=== PATIENT | male | born 1955 | race Caucasian/White ===

== ENCOUNTER 2023-08-06 11:26 | Outpatient (CLI) | payer MEDICARE, SELFPAY | END 2023-08-06 11:27 | disposition home or self-care (01) | LOC: ANHSURGERY 11:33 | PROVIDERS: PCP Family Medicine Adolescent Medicine; Visit Provider Surgery | DX: K40.90 Unilateral inguinal hernia, without obstruction or gangrene, not specified as recurrent (principal); Z01.818 Encounter for other preprocedural examination | CPT/HCPCS: 36415; 86850; 86900; 86901 ==

== ENCOUNTER 2023-08-09 00:11 | Day surgery (SDC) | payer MEDICARE, SELFPAY ==
--- NOTE | 2023-08-05 11:11 | PC.NURSE ---
Report to the Outpatient Waiting Room, entrance under the green pavilion located off [facility], at time 0600 on date __08/09/23 . Planned Procedure Time: _0730 . Time changes happen often and if your time is changed the preop area will call you the afternoon before. - You and your visitor will be asked to self-screen and do not enter if you have any COVID symptoms. - A mask is optional within the hospital at this time. Patients may have clear liquids (water, carbonated beverages, clear teas, apple juice) until 3 hours prior to surgery with a maximum of 20 ounces. - No food from midnight until time of surgery - Infants may have breast milk until 4 hours before surgery, infant formula 6 hours prior to surgery. - Children will be allowed to drink immediately following surgery. If applicable, please bring a bottle or sippy cup to assist with drinking. Juice, water, soda, and popsicles are readily available. For infants on formula, please bring formula the day of surgery. Pacifiers are allowed. Take the following medications with a SIP of water the morning of surgery: __INHALERS DO NOT STOP ANY OF YOUR OTHER PRESCRIPTION MEDICATIONS PRIOR TO SURGERY ?EXCEPT THE FOLLOWING Medications to discontinue per physician __ALL VITAMINS AND SUPPLEMENT 3 DAYS PRE OP.LAST DOSE 08/05/23 HIBICLENS SHOWER MORNING OF SURGERY Please no make-up, nail argentine, hairspray, perfume, deodorant, or body powder the day of surgery. No jewelry (including any body piercings) or valuables the day of surgery, leave them at home. Please take a shower or bath the night before, or the morning of, surgery with an antibacterial soap. Wear comfortable, loose fitting clothing. Children are encouraged to wear pajamas. - Jewelry must be removed prior to entering the operating room. Rings and piercings that are not removed may be cut off. - The hospital will not accept responsibility for valuables. - Please leave all valuables, including medications, at home the day of surgery. If you are going home after surgery, a licensed light truck driver must drive you home. - NO public transportation without another adult if you receive anesthesia. - We recommend that an adult stay with you for 24 hours following discharge. - We also recommend that you do not drive, make important decision, drink alcoholic beverages, or take any drugs that were not prescribed by your health care provider for at least 24 hours after your discharge time. For Pediatric surgeries, we recommend two adults accompany the child home. Follow any additional instructions given to you from your surgeon. If you or anyone in your household have experienced Covid symptoms in the past week, please notify your surgeon or the nurse liaison at the phone number below for possible testing. Telephone instructions given to __PT'S RACHEAL and asked if any additional questions and then verbalized understanding. Patient advised to call surgeon office or pre surgery nurse liaison [phone] if any additional questions.
[2023-08-05 11:20] VITALS: BMI 21.4
--- NOTE | 2023-08-08 21:11 | PM.SD2 ---
Same Day Admit/Disch: HPI History of Present Illness Chief complaint: right inguinal hernia Narrative: Oleg Gomez is a 68 year old male with a right groin bulge for 3 years. It is getting larger and is occasionally painful. He was seen in the office and is taken to surgery now for robotic laparoscopic repair. [facility] Past Medical History Medical History (Updated 08/09/23 @ 09:14 by Todd Sumner MD) Asthma Family History Family History Father Anemia Social History Social History Smoking status: Never smoker Alcohol intake: current Drinks per week: 2 Lack of Transportation: No Lack of Food: Never True Current Housing: I Have Housing Concerned About Future Housing: No Difficulty Paying Gas/Electric Bills: No Difficulty Paying for Meds: No Currently Unemployed: No Education: Trade/Vocational Certificate Difficulty w/ Childcare or Family Care: No Living arrangements: with family Spiritual care concerns: No Same Day Admit/Disch: Med Pre-admit Medications Home Medications Medication Instructions Recorded Confirmed Type ascorbic acid (vitamin C) 500 mg 500 mg PO DAILY 08/05/23 08/05/23 History tablet budesonide-formoterol HFA 160 2 inh inhalation BID 08/05/23 08/05/23 History mcg-4.5 mcg/actuation aerosol inhaler fluticasone propionate 50 2 spray intranasal DAILY 08/05/23 08/05/23 History mcg/actuation nasal spray,suspension glucosamine sulf dipot 1 cap PO DAILY 08/05/23 08/05/23 History chlr,msm,chond 550 mg-C 30 mg-lissy 1 mg capsule (Glucosamine Chondroitin) multivitamin 1 tablet PO DAILY 08/05/23 08/05/23 History ibuprofen 600 mg tablet 600 mg PO Q6H PRN pain #14 tabs 08/09/23 Rx oxycodone-acetaminophen 5 mg-325 0.5 - 1 tablet PO Q8H PRN pain #10 08/09/23 Rx mg tablet tabs Review of Systems Review of Systems All systems reviewed & are unremarkable except as noted in HPI and below (HPI) Exam Const: General: comfortable, no acute distress, alert and awake HENMT: Head: normocephalic and atraumatic Mouth: Yes Normal oral and palatal mucosa present Eyes: Conjunctivae: conjunctivae normal Pupils: Equal, round and reactive pupils present EOM: EOMs intact bilaterally Neck: Neck: normal visual inspection, no lymphadenopathy and nontender Resp: Effort & Inspection: normal respiratory effort Auscultation: clear to auscultation bilaterally Cardio: Rate: regular rate Rhythm: regular rhythm Heart sounds: no gallops, no murmurs and no rubs GI: Inspection: non-distended GI Palp: Yes Soft to palpation, No Tenderness to palpation present (GI), No Hepatomegaly present and No Splenomegaly present : Male General Exam: Yes hernia (right inguinal, obvious bulge, reduces) and No tenderness Penis: Yes normal penis Scrotum: scrotum normal Testes: Testes normal Skin: Lesions: no lesions Rashes: no rashes Neuro: General: no focal motor deficits and CN's II-XI intact bilaterally Cranial nerves: Yes Equal, round and reactive pupils present, Yes Bilaterally intact EOM present, Yes facial symmetry and Yes Midline tongue present Speech: normal speech Motor exam (neuro): 5/5 motor strength present throughout and Motor abnormalities not present Extrem: General: no clubbing, cyanosis or edema and edema Psych: Affect: normal affect Thought process: Normal thought process present Insight: Good insight present (Psych) DS: Summary Time Spent with Patient Time attestation: Total time spent providing and/or coordinating discharge services: DS: Admitting Diagnosis Discharge Date 08/09/23 Admitting Diagnosis reducible right inguinal hernia--plan to proceed with robotic laparoscopic repair. Procedure, risks, benefits discussed. All questions answered. He agrees to go ahead. DS: Discharge Diagnosis Discharge Diagnosis (1) Right inguinal hernia:
[2023-08-09] VITALS (8 sets, daily range): BP systolic 104–137; BP diastolic 69–90; PULSE 55–71; RESP 12–16; TEMP 36.6–36.9; O2SAT 96–100
[2023-08-09] MEDS: LACTATED RINGERS 1,000 ML 30 ML IV CONT ×3 (06:30→10:32)
[2023-08-09] MEDS: ACETAMINOPHEN 500 MG TABLET 1000 MG PO (06:40)
[2023-08-09] MEDS: KETOROLAC 15 MG/ML VIAL (*BKC) IV PUSH (06:41)
--- NOTE | 2023-08-09 06:57 | WPDHPUPDATE1 ---
History and Physical Update Update Date/Time: 08/09/23 06:57 History and Physical has been reviewed, including an updated exam of the patient. There are NO changes in the patient's condition. Risks, benefits, and alternatives have been discussed and questions answered. Patient agrees to proceed with procedure.
--- NOTE | 2023-08-09 07:06 | WPDANESEPPF ---
Anes - Initial Pre Proc Eval Procedure: Operation Date: 08/09/23 07:30 Proposed Procedures p Robotic Assisted Right Inguinal Hernia Repair - Todd Sumner MD Date/Time: 08/09/23 07:06 Surgeon: Todd Sumner MD Pre Op Diagnosis: right inguinal hernia Patient Data Age: 68 Gender: M Height: 1.75 m Weight: 65.8 kg Allergies Allergy/AdvReac Type Severity Reaction Status Date / Time No Known Allergies Allergy Verified 08/05/23 11:05 Home Medications Medication Instructions Recorded Confirmed Type ascorbic acid (vitamin C) 500 mg 500 mg PO DAILY 08/05/23 08/05/23 History tablet budesonide-formoterol HFA 160 2 inh inhalation BID 08/05/23 08/05/23 History mcg-4.5 mcg/actuation aerosol inhaler fluticasone propionate 50 2 spray intranasal DAILY 08/05/23 08/05/23 History mcg/actuation nasal spray,suspension glucosamine sulf dipot 1 cap PO DAILY 08/05/23 08/05/23 History chlr,msm,chond 550 mg-C 30 mg-lissy 1 mg capsule (Glucosamine Chondroitin) multivitamin 1 tablet PO DAILY 08/05/23 08/05/23 History Patient hx anesthesia problems: none Family hx anesthesia problems: none Results Review: All pre-operative results and documents have been reviewed as part of the pre-operative evaluation. [facility] Past Medical History Medical History (Updated 08/09/23 @ 07:06 by Ivan Hernandez MD) Asthma Family History Family History Father Anemia Social History Social History Smoking status: Never smoker Alcohol intake: current Drinks per week: 2 Lack of Transportation: No Lack of Food: Never True Current Housing: I Have Housing Concerned About Future Housing: No Difficulty Paying Gas/Electric Bills: No Difficulty Paying for Meds: No Currently Unemployed: No Education: Trade/Vocational Certificate Difficulty w/ Childcare or Family Care: No Living arrangements: with family Spiritual care concerns: No Anes - Eval Final PreProcedure Day of Procedure 08/09/23 07:06 Patient weight: normal Heart: regular rate and rhythm Lungs: clear to auscultation Airway: Mallampati scale class II Neurological: alert and oriented Last oral intake: >/= 8 hours ASA classification: II Emergent: no Anesthetic plan: proceed Anesthesia type and monitoring: general ETT and standard monitoring Results Review: All pre-operative results and documents have been reviewed as part of the pre-operative evaluation. Informed Consent: The patient's anesthetic plan and its attendant risks and benefits were discussed with the patient/family/POA. Questions were solicited and answers provided to the satisfaction of the patient/family/POA.
[2023-08-09] MEDS: ceFAZolin 2 GM/D5W 50 ML 2 GM/50 ML BAG IVPB (07:28)
[2023-08-09] MEDS: BUPIVACAINE/EPINEPHRINE 0.5% 50 ML VIAL 30 ML INFILTRATE (08:15)
--- NOTE | 2023-08-09 09:01 | W.PM.PROC2 ---
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 It has become more pronounced and is occasionally painful. He was found to have a right inguinal hernia and is taken to surgery now for robotic laparoscopic repair Findings Patient had a large direct inguinal hernia. There was no indirect hernia. Description of Procedure Patient was taken to surgery and induced into general anesthesia. The abdomen was prepped and draped. The varies needle was placed 1st and insufflation carried out. Then a 5 mm applied Medical optical trocar was placed under direct visualization. We then placed the right-sided 8 mm robotic trocar and the left-sided 8 mm robotic trocar under direct visualization. The midline trocar was removed and exchanged for a 3rd 8 mm robotic trocar. The robot was then brought into the field and the camera was docked. The camera was targeted. We then docked the 1st and 3rd arms of the robot. Instruments were position there as well. The surgeon broke scrub and went to the robotic console. A peritoneal flap was created at about the level of the anterior superior iliac spine. It was started laterally and continued medially to the median umbilical ligament. The peritoneal flap was then created dissecting both lateral and medial to the cord structures 1st. On the medial dissection, we did proceed across the midline to expose the medial border of the left rectus muscle and also the midline of the pubis. Ronal's ligament was exposed and about 2 cm posterior to the pubis was dissected. There was bleeding in this area which was controlled with cautery. We suctioned out some of the residual clot. Further dissection was carried out to remove the peritoneal reflection from the cord structures. Fatty tissue was removed from the direct hernia leaving the transversalis fascia in place. I also removed some fatty tissue from the femoral space. I then turned to the lateral aspect of the peritoneal flap. Staying very close to the flap, I dissected it free from the abdominal wall at least 4 cm posterior to the internal ring. I then grasped the peritoneum in the area of the cord structures. Retracting medially and dissecting cord structures off the peritoneum I was able to free the peritoneum from the cord structures well past 4 cm from the internal ring. A 17 x 12 cm right-sided 3DMax mesh was then placed into the abdominal cavity. The Vicryl and V lock suture were also placed. The mesh was positioned appropriately. It covered well the direct hernia defect as well as the indirect space. Its posterior aspect fit nicely into the space below the pubis and Ronal's ligament. I then used 3-0 Vicryl to suture the mesh to Ronal's ligament. The mesh was then sutured to the anterior abdominal wall both medial and lateral to the inferior epigastric vessels. All looked good. I then used the 2 0 V lock and closed the peritoneal flap from lateral to medial. All looked good. The V lock and Vicryl suture needles were then removed. The robot was undocked after the camera and other instruments were removed. Trocars were removed and the skin wounds were closed with subcuticular running 4-0 Monocryl skin suture. The wounds were dressed with Exofin surgical adhesive. A scrotal support was placed. The patient was awakened and taken to recovery in good condition. Sponge needle counts were correct x2. Implants 17 x 12 cm right-sided mid 3DMax mesh Estimated Blood Loss -5 Drains No Packing No Pathology None sent Complications No immediate complications Condition Stable Disposition PACU [facility] - Charge Forward: Surger
== END 2023-08-09 11:48 | disposition home or self-care (01) ==
PROVIDERS: PCP Family Medicine Adolescent Medicine; Visit Provider Surgery
PROC: 8E0Y4CZ Robotic Assisted Procedure of Lower Extremity, Percutaneous Endoscopic Approach (ICD-10-PCS; CPT 49650; principal; 2023-08-09 07:30)
DX: K40.90 Unilateral inguinal hernia, without obstruction or gangrene, not specified as recurrent (principal); J45.909 Unspecified asthma, uncomplicated; Z79.51 Long term (current) use of inhaled steroids
CPT/HCPCS: 49650; S2900; 36415; 86850; 86900; 86901; A9270; C1781; J0690; J1100; J1885; J2250; J2704; J3010; J7030; J7120

== ENCOUNTER 2024-08-26 08:59 | Day surgery (SDC) | payer MEDICARE, SELFPAY ==
[2024-04-29 10:25] VITALS: BMI 21.5
[2024-08-11 11:00] VITALS: BMI 20.8
--- NOTE | 2024-08-25 15:35 | WPDANESEPPF ---
Anes - Initial Pre Proc Eval Procedure: Operation Date: 08/26/24 11:00 Proposed Procedures p Diagnostic Colonoscopy - Fawad Villafuerte MD Date/Time: 08/25/24 15:35 Surgeon: Fawad Villafuerte MD Pre Op Diagnosis: Personal history of colon polyps Patient Data Age: 69 Gender: M Height: 1.78 m Weight: 66 kg Allergies Allergy/AdvReac Type Severity Reaction Status Date / Time No Known Allergies Allergy Verified 08/26/24 09:36 Home Medications Medication Instructions Recorded Confirmed Type ascorbic acid (vitamin C) 500 mg 500 mg PO DAILY 08/05/23 08/26/24 History tablet fluticasone propionate 50 2 spray intranasal DAILY 08/05/23 08/26/24 History mcg/actuation nasal spray,suspension glucosamine sulf dipot 1 cap PO DAILY 08/05/23 08/26/24 History chlr,msm,chond 550 mg-C 30 mg-lissy 1 mg capsule (Glucosamine Chondroitin) multivitamin 1 tablet PO DAILY 08/05/23 08/26/24 History loratadine 10 mg tablet (Claritin) 10 mg PO DAILY PRN Allergy Symptoms 04/27/24 08/26/24 History budesonide 160 mcg-glycopyr 9 1 inh inhalation BID 08/11/24 08/26/24 History mcg-formot 4.8 mcg/actuation HFA inhaler (Breztri [employer]) Patient hx anesthesia problems: none Family hx anesthesia problems: none Results Review: All pre-operative results and documents have been reviewed as part of the pre-operative evaluation. [facility] Past Medical History Medical History (Updated 04/27/24 @ 06:43 by Mumtaz Wynne MD) Asthma Right inguinal hernia Surgical History Surgical History History of hernia repair Robotic laparoscopic right inguinal hernia repair with mesh on 08/09/23 Dr. Sumner Family History Family History Father Anemia Social History Social History Smoking status: Former smoker Tobacco type: cigarettes Alcohol intake: current Drinks per week: 3 Substance use type: does not use Lack of Transportation: No Lack of Food: Never True Current Housing: I Have Housing Concerned About Future Housing: No Difficulty Paying Gas/Electric Bills: No Difficulty Paying for Meds: No Currently Unemployed: No Education: Trade/Vocational Certificate Difficulty w/ Childcare or Family Care: No Living arrangements: with family Spiritual care concerns: No Anes - Eval Final PreProcedure Day of Procedure 08/25/24 15:35 Patient weight: normal Heart: regular rate and rhythm Lungs: clear to auscultation and normal air movement Airway: Mallampati scale class II Neurological: alert and oriented Last oral intake: >/= 8 hours ASA classification: II Emergent: no Anesthetic plan: proceed Anesthesia type and monitoring: general GIVS and standard monitoring Results Review: All pre-operative results and documents have been reviewed as part of the pre-operative evaluation. Informed Consent: The patient's anesthetic plan and its attendant risks and benefits were discussed with the patient/family/POA. Questions were solicited and answers provided to the satisfaction of the patient/family/POA.
[2024-08-26 09:41] VITALS: BP 146/89; PULSE 59; RESP 16; TEMP 36.8; O2SAT 98
[2024-08-26] MEDS: LACTATED RINGERS 1,000 ML 150 ML IV CONT (09:55)
--- NOTE | 2024-08-26 10:23 | PM.HPGS ---
History of Present Illness History of Present Illness Consent: Risks, benefits, and alternatives have been discussed and questions answered. Patient agrees to proceed with procedure. Chief complaint: Personal history of colon polyps Narrative: Oleg Gomez is a 69 year old male referred for colonoscopy. Patient has a history of colon polyps at the time of colonoscopy in 2019, 5 years ago. Patient is his current weight appetite and so are normal. He denies abdominal pain. Patient has had no bleeding. Family history noncontributory. Review of Systems Review of Systems: All systems reviewed & are unremarkable except as noted in HPI and below PMFSH Past Medical History Medical History (Updated 08/26/24 @ 10:25 by Fawad Villafuerte MD) Asthma Right inguinal hernia Surgical History Surgical History History of hernia repair Robotic laparoscopic right inguinal hernia repair with mesh on 08/09/23 Dr. Sumner Family History Family History Father Anemia Social History Social History Smoking status: Former smoker Tobacco type: cigarettes Alcohol intake: current Drinks per week: 3 Substance use type: does not use Lack of Transportation: No Lack of Food: Never True Current Housing: I Have Housing Concerned About Future Housing: No Difficulty Paying Gas/Electric Bills: No Difficulty Paying for Meds: No Currently Unemployed: No Education: Trade/Vocational Certificate Difficulty w/ Childcare or Family Care: No Living arrangements: with family Spiritual care concerns: No Meds Home Medications and Allergies Home Medications Medication Instructions Recorded Confirmed Type ascorbic acid (vitamin C) 500 mg 500 mg PO DAILY 08/05/23 08/26/24 History tablet fluticasone propionate 50 2 spray intranasal DAILY 08/05/23 08/26/24 History mcg/actuation nasal spray,suspension glucosamine sulf dipot 1 cap PO DAILY 08/05/23 08/26/24 History chlr,msm,chond 550 mg-C 30 mg-lissy 1 mg capsule (Glucosamine Chondroitin) multivitamin 1 tablet PO DAILY 08/05/23 08/26/24 History loratadine 10 mg tablet (Claritin) 10 mg PO DAILY PRN Allergy Symptoms 04/27/24 08/26/24 History budesonide 160 mcg-glycopyr 9 1 inh inhalation BID 08/11/24 08/26/24 History mcg-formot 4.8 mcg/actuation HFA inhaler (Breztri [employer]) Allergies Allergy/AdvReac Type Severity Reaction Status Date / Time No Known Allergies Allergy Verified 08/26/24 09:36 Vital Signs Vital Signs - 24 hr 08/26/24 09:41 Temperature 98.2 F Pulse Rate 59 L Respiratory Rate 16 Blood Pressure 146/89 H Pulse Oximetry 98 Oxygen Delivery Room Air Exam Narrative: Physical exam reveals patient to be alert. Vital signs stable. HEENT exam is unremarkable. Patient is anicteric. Lungs are clear to auscultation and to percussion. Heart is without murmur or extra sounds. Abdomen bowel sounds are present soft nontender with no organomegaly. Digital and External rectal exam is normal. Assessment and Plan Assessment and plan (1) History of colon polyps: Code(s): Z86.0100 - Personal history of colon polyps, unspecified Status: Acute Assessment and Plan: Patient has a history of colon polyps. Plan for surveillance colonoscopy at 5 year intervals.
[2024-08-26 11:31] VITALS: BP 104/73; PULSE 66; RESP 14; O2SAT 100
[2024-08-26 11:41] VITALS: BP 106/73; PULSE 67; RESP 16; O2SAT 98
[2024-08-26 11:51] VITALS: BP 120/69; PULSE 68; RESP 16; O2SAT 99
--- NOTE | 2024-08-26 12:55 | WPDANESPN ---
Anes - Prog Note Post-Op Date/Time: 08/26/24 12:55 Cardiovascular status: normal Respiratory status: normal Airway patency: baseline Mental status: baseline Post-Op hydration status: normal Vital Signs: Last Vital Signs Temp 36.8 C 08/26/24 09:41 Pulse 68 08/26/24 11:51 Resp 16 08/26/24 11:51 BP 120/69 08/26/24 11:51 Pulse Ox 99 08/26/24 11:51 O2 Del Method Room Air 08/26/24 11:51 Pain Score (VAS): 0 I/O: Intake & Output 08/25/24 08/26/24 08/26/24 23:59 07:59 15:59 Intake Total 700 Balance 700 Post-procedural complaints: none Patient Feedback: Patient satisfied with anesthetic care. Other Findings: Patient vital signs back to baseline. Patient denies nausea and vomiting. Patient's pain under control. Patient OK for discharge.
== END 2024-08-26 12:10 | disposition home or self-care (01) ==
PROVIDERS: PCP Family Medicine Adolescent Medicine; Visit Provider Internal Medicine Gastroenterology
PROC: 0DJD8ZZ Inspection of Lower Intestinal Tract, Via Natural or Artificial Opening Endoscopic (ICD-10-PCS; CPT 45378; principal; 2024-08-26 11:00)
DX: Z86.0100 Personal history of colon polyps, unspecified (principal); D12.4 Benign neoplasm of descending colon; K57.30 Diverticulosis of large intestine without perforation or abscess without bleeding; K64.8 Other hemorrhoids
CPT/HCPCS: 45385

== ENCOUNTER 2024-08-26 10:52 | Outpatient (NON) | payer MEDICARE, SELFPAY | END 2024-08-26 10:53 | disposition home or self-care (01) | LOC: ANHLAB 08-27 10:54 | PROVIDERS: PCP Family Medicine Adolescent Medicine; Visit Provider Internal Medicine Gastroenterology | DX: D12.4 Benign neoplasm of descending colon (principal); Z86.0100 Personal history of colon polyps, unspecified | CPT/HCPCS: 88305 ==

== ENCOUNTER 2025-11-02 10:08 | Outpatient (CLI) | payer MEDICARE, SELFPAY ==
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
--- OUTSIDE RECORDS SUMMARY | 2025-01-11 03:04 | XMS_ITS ---
Author Organization [facility] , Address [address] [place] [address] Care Team Providers Care Pressure Sealer And Tester Name Role Phone Mumtaz Wynne Primary Care Provider Roby Morel Unavailable [phone] Scan Encounters Encounter Location Date Provider Diagnosis [facility] [place] [address] [facility] [address] [address] 01/11/2025 Roby Paula PLAN OF TREATMENT No Information
--- OUTSIDE RECORDS SUMMARY | 2025-01-22 04:50 | XMS_ITS ---
Author Organization [facility] , Address [address] [place] [address] Care Team Providers Care Timber Selector Name Role Phone Mumtaz Wynne Primary Care Provider Roby Morel Unavailable [phone] ALLERGIES No Known Allergies REASON FOR REFERRAL Reason eval/treat per bishop col right medial clavicle fracture Diagnosis 1 Closed displaced fra cture of right clavicle with routine healing, unspecified part of clavicle, subsequent encounter (S42.001D) Referral Organization [facility] [place] Referring Provider First Name Roby Referring Provider Last Name Nisa Referring Provider Speciality Orthopedic Surgery Referred Provider Specialty Physical The rapy Referral Priority Routine REASON FOR VISIT 6 week f/u right medial clavicle fracture MEDICATIONS Medication SIG (Take, Route, Frequency, Duration) Notes Start Date End Date Status Multivitamin Active Vitamin C Active Glucosamine Chondroitin Joint Active Symbicort Active VITAL SIGNS BMI 21.41 kg/m2 01/22/2025 Height 69 in 01/22/2025 Weight 145 lbs 01/22/2025 Encounters Encounter Location Date Provider Diagnosis [facility] [place] [address] [place] [address] 01/22/2025 Royb Paula Closed displaced fracture of right clavicle with routine healing, unspecified part of clavicle, subsequent encounter S42.001D ASSESSMENTS Encounter Date Diagnosis Assessment Notes Treatment Notes Treatment Clinical Notes Section Notes 01/22/2025 Closed displaced fracture of right clavicle with routine healing, unspecified part of clavicle, subsequent encounter (ICD-10 - S42.001D) Oleg has an interesting issue. His CT scan that was done this week does demonstrate evidence of anterior and superior displacement of the lateral fracture fragment of the medial clavicle. The SC joint is reduced, however. It is a difficult fracture to manage. There is significant prominence from a clinical perspective. However he really is doing quite well with regards to his range of motion and the fact that he has minimal pain. There is really very minimal bone to fix into medially even if we did consider fixing this fracture. At this point I would recommend trying to let the fracture heal nonoperatively and if we need to go back in later on and shave down any anterior prominence we could do so. This would likely be a more effective and safe for way of treating this fracture at this point. He may come out of the sling and work on abduction and forward flexion range of motion. He should minimize the amount of adduction he does cross body in the amount of elevated internal rotation behind his back. He is aware of this. We will get him started into some physical therapy to make sure he maintains his range of motion. He can begin some gentle strengthening activities over the next several weeks. With regards to work restrictions, I still believe he can not return to work for at least another 6 weeks given that the fracture still not healed. We will see him back at the 6 week abbie and make a judgment on return to work activities. From a day-to-day standpoint he should not be lifting anything being heavier than 5-10 lbs. 01/22/2025 Other Imaging review : I independently reviewed a CT scan of the chest without contrast which demonstrates evidence of subacute comminuted fracture of the medial clavicle with anterior and superior displacement of the lateral fracture fragment. There is soft tissue edema noted here. The SC joint is still reduced. There are also segmental rib fractures seen in his 2nd and 3rd ribs below this. PLAN OF TREATMENT Referrals Referral Date Details eval/treat per bishop col right medial clavicle fracture Next Appt Details Follow Up: 6 Weeks, Reason: Progress Notes * Examination Category Sub-Category Detail Notes Category Not es Right Shoulder The patient is alert and oriented without obvious signs of distress. On evaluation of the right shoulder, there is prominence of the medial clavicle at the fracture site. There is no crepitus here today. There is no tenderness today in this region. I am not able to appreciate any translation with movement of the fracture site today. He can actively range his arm into 90 deg of abduction and forward elevation. I can passively range his shoulder into about 140 deg of abduction and forward flexion without pain. He has 5-/5 strength in abduction/forward flexion/external rotation/internal rotation. The RUE is NVI distally including intact function of the axillary nerve. History and Physical Notes * HPI (History of Present Illness) Category Sub-Category Detail Notes Category Not es . Oleg returns for re-evaluation of his right medial clavicle fracture. He is now approximately 7 weeks from his initial injury on 12/05/2024. He has been in his sling for the last several weeks now to allow things to calm down. He did have an updated CT scan of his chest done on Saturday which demonstrated the SC joint still reduced but with significant displacement anteriorly of the fracture. There is some evidence of early healing. Really is not having much pain at this point. The deformity is his main issue. That being said his range of motion is relatively reasonable without pain. Consultation Request Notes Referral Date Referring Provider Referred Provider Not es 01/22/2025 Roby Paula eval/treat per protocol right medial clavicle fracture
--- OUTSIDE RECORDS SUMMARY | 2025-02-19 07:37 | XMS_ITS ---
Author Organization [facility], Address [address] [facility] [address] [place] [address] Care Team Providers Care Food Service Associate Name Role Phone Mumtaz Wynne Primary Care Provider Roby Morel Unavailable [phone] REASON FOR VISIT PT work comp Encounters Encounter Location Date Provider Diagnosis [facility], [address] [facility] [address] [place] [address] 02/19/2025 Roby Paula PLAN OF TREATMENT No Information
--- OUTSIDE RECORDS SUMMARY | 2025-03-10 04:50 | XMS_ITS ---
Author Organization [facility] , Address [address] [place] [address] Care Team Providers Care Log Raft Worker Name Role Phone Mumtaz Wynne Primary Care Provider Roby Morel Unavailable [phone] ALLERGIES No Known Allergies RESULTS Component Value Reference Range Notes X ray : Clavicle R, AP, AP a ngled 30 degrees Reviewed date:03/11/2025 09:23:35 AM Interpretation: Performing Lab: Notes/Report: REASON FOR REFERRAL Reason Cont Therapy 2 X 6wk s Diagnosis 1 Closed displaced fra cture of right clavicle with routine healing, unspecified part of clavicle, subsequent encounter (S42.001D) Referral Organization [facility] [place] Referring Provider First Name Roby Referring Provider Last Name Nisa Referring Provider Speciality Orthopedic Surgery Referred Provider Specialty Physical The ruthy Referral Priority Routine REASON FOR VISIT 13 week f/u right medial clavicle fracture (DOI 1-) MEDICATIONS Medication SIG (Take, Route, Frequency, Duration) Notes Start Date End Date Status Vitamin C Active Multivitamin Active Symbicort Active Glucosamine Chondroitin Joint Active VITAL SIGNS BMI 21.41 kg/m2 03/10/2025 Height 69 in 03/10/2025 Weight 145 lbs 03/10/2025 Encounters Encounter Location Date Provider Diagnosis [facility] [place] [address] [place] [address] 03/10/2025 Roby Paula Closed displaced fracture of right clavicle with routine healing, unspecified part of clavicle, subsequent encounter S42.001D and Pain, joint, shoulder, right M25.511 ASSESSMENTS Encounter Date Diagnosis Assessment Notes Treatment Notes Treatment Clinical Notes Section Notes 03/10/2025 Closed displaced fracture of right clavicle with routine healing, unspecified part of clavicle, subsequent encounter (ICD-10 - S42.001D) Oleg has a medial clavicle fracture that appears to be healing. Radiographically, there is evidence of some consolidation of the fracture. Clinically he has no tenderness to palpation. There is no crepitus. He has been range of motion and reasonable strength. I would like him to continue with some therapy over the next 6 weeks to continue building his strength and getting back to the point where his injured side is similar to the contralateral side. I will allow him to return to work with restrictions including a 10 lb weightlifting limit as well as no repetitive overhead work for the next 6 weeks. I will see him back at that time and hopefully return him to full duty at that point. 03/10/2025 Pain, joint, shoulder, right (ICD-10 - M25.511) PLAN OF TREATMENT Referrals Referral Date Details Cont Therapy 2 X 6wk s Next Appt Details Follow Up: 6 Weeks, Reason: Progress Notes * Examination Category Sub-Category Detail Notes Category Not es Right Shoulder The patient is alert and oriented without obvious signs of distress. On evaluation of the right shoulder, there is prominence of the medial clavicle at the fracture site. There is no crepitus here today. There is no tenderness today in this region. There is no movement of the fracture site. Active range of motion is 160 deg of abduction, 160 deg of forward elevation, 60 deg of external rotation, and internal rotation to T12 He has 5/5 strength in abduction/forward flexion/external rotation/internal rotation. The RUE is NVI distally including intact function of the axillary nerve. History and Physical Notes * HPI (History of Present Illness) Category Sub-Category Detail Notes Category Not es . Oleg is retur tree for re-evaluation of his right medial clavicle fracture. He is doing quite well. His range of motion is nearly full. His strength is good. He has been doing some therapy although has not been able to complete all of the sessions due to a delay in approval. Otherwise he has no new complaints. Consultation Request Notes Referral Date Referring Provider Referred Provider Not es 03/10/2025 Roby Paula , Cont Therapy 2 X 6wks
--- OUTSIDE RECORDS SUMMARY | 2025-04-21 04:50 | XMS_ITS ---
Author Organization [facility] , Address [address] [facility] [address] [place] [address] Care Team Providers Care Director Food And Beverage Name Role Phone Mumtaz Wynne Primary Care Provider Roby Morel Unavailable [phone] ALLERGIES No Known Allergies RESULTS Component Value Reference Range Notes X ray : Clavicle R, AP, AP a ngled 30 degrees Reviewed date:04/22/2025 07:34:24 AM Interpretation: Performing Lab: Notes/Report: REASON FOR VISIT 19 week f/u right medial clavicle fracture (DOI 1-18-) MEDICATIONS Medication SIG (Take, Route, Frequency, Duration) Notes Start Date End Date Status Symbicort Active Multivitamin Active Vitamin C Active Glucosamine Chondroitin Joint Active VITAL SIGNS BMI 21.41 kg/m2 04/21/2025 Height 69 in 04/21/2025 Weight 145 lbs 04/21/2025 Encounters Encounter Location Date Provider Diagnosis [facility] [place] [address] [facility] [address] [place] [address] 04/21/2025 Roby Paula Closed displaced fracture of right clavicle with routine healing, unspecified part of clavicle, subsequent encounter S42.001D and Pain, joint, shoulder, right M25.511 ASSESSMENTS Encounter Date Diagnosis Assessment Notes Treatment Notes Treatment Clinical Notes Section Notes 04/21/2025 Closed displaced fracture of right clavicle with routine healing, unspecified part of clavicle, subsequent encounter (ICD-10 - S42.001D) Oleg is progressing nicely after his medial clavicle fracture. Radiographs are always difficult to interpret of the medial clavicle but clinically it appears to be progressing quite nicely. He really has no tenderness over this area and there is no crepitus on examination. His range of motion is full. He has no pain. I would recommend return to work without restrictions at this point. I think he is at maximal medical improvement from his initial work injury. I will see him back on an as-needed basis. 04/21/2025 Pain, joint, shoulder, right (ICD-10 - M25.511) PLAN OF TREATMENT Next Appt Details Follow Up: prn, Reason: Progress Notes * Examination Category Sub-Category [...] of external rotation, and internal rotation to T8. He has 5/5 strength in abduction/forward flexion/external rotation/internal rotation. The RUE is NVI distally including intact function of the axillary nerve. History and Physical Notes * HPI (History of Present Illness) Category Sub-Category Detail Notes Category Not es . Oleg returns for re-evaluation in his medial clavicle fracture. He is now 19 weeks out from his injury. He has been doing physical therapy and feels like he is making good progress. He has really no restrictions in range of motion. He is not having any pain on a regular basis.
--- OUTSIDE RECORDS SUMMARY | 2025-11-02 11:47 | XMS_ITS | Patient Health Record ---
Author Organization [facility] , Address [address] [place] [address] Care Team Providers Care Alcohol Rubber Name Role Phone Mumtaz Wynne Primary Care Provider Roby Morel Unavailable [phone] ALLERGIES No Known Allergies RESULTS Component Value Reference Range Notes CT Chest (without contrast) Reviewed date:01/20/2025 08:29:39 AM Interpretation:[facility] Performing Lab: Notes/Report: [facility] X ray : Clavicle R, AP, AP a ngled 30 degrees Reviewed date:03/11/2025 09:23:35 AM Interpretation: Performing Lab: Notes/Report: X ray : Clavicle R, AP, AP a ngled 30 degrees Reviewed date:04/22/2025 07:34:24 AM Interpretation: Performing Lab: Notes/Report: REASON FOR REFERRAL Reason eval/treat per bishop col right medial clavicle fracture Diagnosis 1 Closed displaced fra cture of right clavicle with routine healing, unspecified part of clavicle, subsequent encounter (S42.001D) [facility] Referring Provider First Name Roby Referring Provider Last Name Nisa Referring Provider Speciality Orthopedic Surgery Referred Provider Specialty Physical The [facility] Referral Priority Routine Reason Cont Therapy 2 X 6wk s Diagnosis 1 Closed displaced fra cture of right clavicle with routine healing, unspecified part of clavicle, subsequent encounter (S42.001D) [facility] [place] Referring Provider First Name Roby Referring Provider Last Name Nisa Referring Provider Speciality Orthopedic Surgery Referred Provider Specialty Physical The [facility] Referral Priority Routine MEDICATIONS Medication SIG (Take, Route, Frequency, Duration) Notes Start Date End Date Status Symbicort Active Multivitamin Active Vitamin C Active Glucosamine Chondroitin Joint Active VITAL SIGNS Height 69 in 04/21/2025 Weight 145 lbs 04/21/2025 BMI 21.41 kg/m2 04/21/2025 Encounters Encounter Location Date Provider Diagnosis [place] [address] [place] [phone] 01/01/2025 Roby Paula Injury of right clavicle, initial encounter S49.91XA ; Closed nondisplaced fracture of shaft of right clavicle, initial encounter S42.024A and Pain, joint, shoulder, right M25.511 [place] [address] 01/22/2025 Roby Paula Closed displaced fracture of right clavicle with routine healing, unspecified part of clavicle, subsequent encounter S42.001D [place] [phone] 03/10/2025 Roby Paula Closed displaced fracture of right clavicle with routine healing, unspecified part of clavicle, subsequent encounter S42.001D and Pain, joint, shoulder, right M25.511 [place] [phone] 04/21/2025 Roby Paula Closed displaced fracture of right clavicle with routine healing, unspecified part of clavicle, subsequent encounter S42.001D and Pain, joint, shoulder, right M25.[address] [phone] 01/11/2025 Roby Paula [facility] [place] [phone] 02/19/2025 Roby Paula ASSESSMENTS Encounter Date Diagnosis Assessment Notes Treatment [...] and we would likely refer him to [facility] if more aggressive care [...] ordinary is noted with his CT scan. 01/22/2025 Closed displaced fracture of right clavicle [...] lifting anything being heavier than 5-10 lbs. 03/10/2025 Closed displaced fracture of right clavicle [...] Pain, joint, shoulder, right (ICD-10 - M25.511) 04/21/2025 Closed displaced fracture of right clavicle [...] joint, shoulder, right (ICD-10 - M25.511) 01/01/2025 Pain, joint, shoulder, right (ICD-10 - [...] There is a small pleural effusion noted. 01/22/2025 Other Imaging review : I independently [...] 3rd ribs below this. PLAN OF TREATMENT Pending Test Test Name Order Date X ray : Clavicle R, AP, AP angled 30 deg kvng 01/01/2025 Insurance Providers Payer Name Payer Address Payer Phone Subscriber Number Group Number Insured Name Patient Relationship to Insured Coverage Start Date Coverage End Date [employer] [address] [address] [place] [address] [id number] Oleg Gomez Self - patient is the insured 5 MEDICAL (GENERAL) HISTORY Medical History History ICD Code asthma seasonal allergies Surgical History Surgery Date(Month/Year) hernia repair
--- NOTE | 2025-11-02 15:23 | WPDPFTINT ---
PFT Procedure Performed PFT Procedure Performed Spirometry with Pre/Post Bronchodilator Plethysmography (Lung Vol) Diffusing Cap (DLCO) Flow Vol Loop PFT Interpretation This is a pulmonary function test with pre and post-bronchodilator spirometry, plethysmography and diffusing capacity. The test was performed and results interpreted in accordance with the 2019 and 2005 ATS/ERS Task Force guidelines respectively using the Global Lung Function Initiative-2012 reference equations. Patient demonstrated good effort and cooperation. Reproducibility criteria were met. The quality of the pre bronchodilator spirometry maneuver was Grade A and post bronchodilator spirometry maneuver was Grade A. Findings: Spirometry: There is a mid expiratory plateau or knee pattern in 2 of 3 pre bronchodilator efforts and 3 of 3 post bronchodilator efforts. There is decreased maximal expiratory airflow at all lung volumes with a concave expiratory flow tracing. The contour the inspiratory flow tracing is normal. The pre bronchodilator FVC is 3.78 L, 94% predicted. The pre bronchodilator FEV1 is 1.72 L, 57% predicted. The pre bronchodilator FEV1: FVC ratio is 45%. The post bronchodilator FVC is 3.84 L, representing a 2% increase. The post bronchodilator FEV1 is 1.74 L, representing 1% increase. The post bronchodilator FEV1: FVC ratio is 45%. Plethysmography: The total lung capacity is 7.48 L, 110% predicted. The functional residual capacity is 4.49 L, 124% predicted. The residual volume is 2.93 L, 121% predicted. Diffusing capacity: The diffusing capacity unadjusted for hemoglobin and carboxyhemoglobin is 23.6, 94% predicted. The diffusing capacity adjusted for alveolar volume is 4.52, 115% predicted. Impression: There is a reproducible knee pattern of the expiratory flow tracing which can be a normal variant or pathologic and has been attributed to a choke point section of the bronchial tree. The normal variant is more common in younger female patients, decreases with age and is more pronounced in the post bronchodilator efforts. The pattern has also been described with kyphosis, kyphoscoliosis, central obstructing mass, and post lung transplantation. Otherwise, there is a moderately severe obstructive abnormality. There is no significant improvement after inhaling a single dose of albuterol. The lung volumes are normal. The diffusing capacity is normal. There are no prior studies for comparison
== END 2025-11-02 10:09 | disposition home or self-care (01) ==
PROVIDERS: PCP Family Medicine Adolescent Medicine; Visit Provider Allergy & Immunology
DX: J45.40 Moderate persistent asthma, uncomplicated (principal); R94.2 Abnormal results of pulmonary function studies
CPT/HCPCS: 94060; 94726; 94729

== ENCOUNTER 2025-11-05 11:27 | Outpatient (CLI) | payer MEDICARE, SELFPAY ==
--- NOTE | ~2025-11-05 | XR_ITS ---
EXAMINATION: XR chest 2V, 11/05/2025 11:32 MACHINE [facility] HISTORY: J45.30 - Mild persistent asthma, uncomplicated COMPARISON: No comparisons available. Technique: 2 views obtained. Findings: The lungs are clear, no effusion. No pneumothorax. Heart is normal size. Mediastinal and hilar contours are within normal limits. Bony thorax no acute abnormality. Impression: No acute cardiopulmonary abnormality. Reviewed, dictated and finalized at location P. INE [facility] Impression: No acute cardiopulmonary abnormality.
== END 2025-11-05 11:28 | disposition home or self-care (01) ==
LOC: MICIMG 11:29
PROVIDERS: PCP Allergy & Immunology; Visit Provider Family Medicine Adolescent Medicine
DX: J45.30 Mild persistent asthma, uncomplicated (principal)
CPT/HCPCS: 71046